=== PATIENT | female | born 1955 | race Caucasian/White ===

== ENCOUNTER 2016-04-16 21:04 | Inpatient (IN) | payer BC ==
[2016-04-16] MEDS ORDERED: IPRATROPIUM/ALBUTEROL (0.5MG/3MG) NEB INH ONE (21:25)
[2016-04-16] MEDS ORDERED: METHYLPREDNISOLONE PF 125MG/VIAL IVP ONE (21:32)
--- NOTE | 2016-04-16 21:32 | Emergency Department Record ---
History of Present Illness - General Chief Complaint: Cough Stated Complaint: LARRY Time Seen by Provider: 04/16/16 21:24 Source: Patient - History of Present Illness Initial Comments: The patient is a smoker with a history of COPD, E. coli pneumonia with intubation 1 year ago. She finished amoxicillin and prednisone about 2 weeks ago for a URI, and improved partially. Yesterday she began having increasing LARRY, cough, and respiratory distress. MD Complaint: Cough, Other (SOB) - Related Data Home Medications Medication Instructions Recorded Confirmed Last Taken Duloxetine HCl [Cymbalta] 30 mg PO DAILY 03/19/14 05/09/15 03/19/14 Pseudoephedrine HCl [Sudafed 120 mg PO DAILY 03/19/14 05/09/15 03/19/14 12-Hour] Previous Rx's Medication Instructions Recorded Albuterol Sulfate 0.083% [Neb] 3 ml NEB .EVERY 4-6 HOURS PRN #20 03/19/14 ml Amoxicillin [Amoxil] 500 mg PO TID #30 tab 03/19/14 Prednisone [Prednisone 20Mg] 20 mg PO Q12HR #7 tab 03/19/14 Allergies Allergy/AdvReac Type Severity Reaction Status Date / Time aspirin Allergy HIVES Verified 03/19/14 22:09 cephalexin monohydrate Allergy PT UNSURE Verified 05/10/15 09:41 [From Keflex] OF REACTION codeine Allergy VOMITING Verified 03/19/14 22:09 ibuprofen Allergy HIVES Verified 03/19/14 22:09 Sulfa (Sulfonamide Allergy PT UNSURE Verified 05/10/15 09:41 Antibiotics) OF REACTION levofloxacin AdvReac HIVES Verified 05/09/15 12:22 Can Take Amoxicillin and AdvReac Antibiotics Uncoded 04/16/16 21:21 Cleocin she can take Review of Systems Reviewed: No additional complaints except as noted below Constitutional: Reports: As per HPI. Denies: Chills, Fever, Malaise, Night sweats, Weakness, Weight change Eyes: Reports: As per HPI. Denies: Eye discharge, Eye pain, Photophobia, Vision change ENT: Reports: As per HPI. Denies: Congestion, Dental pain, Ear pain, Epistaxis , Hearing loss, Throat pain Respiratory: Reports: As per HPI. Denies: Cough, Dyspnea, Hemoptysis, Stridor, Wheezes Cardiovascular: Reports: As per HPI. Denies: Arrhythmia, Chest pain, Dyspnea on exertion, Edema, Murmurs, Orthopnea, Palpitations, Paroxysmal nocturnal dyspnea, Rheumatic Fever, Syncope Endocrine: Reports: As per HPI. Denies: Fatigue, Heat or cold intolerance, Polydipsia, Polyuria Gastrointestinal: Reports: As per HPI. Denies: Abdominal pain, Constipation, Diarrhea, Hematemesis, Hematochezia, Melena, Nausea, Vomiting Genitourinary: Reports: As per HPI. Denies: Abnormal menses, Discharge, Dyspareunia, Dysuria, Frequency, Hematuria, Incontinence, Retention, Urgency Musculoskeletal: Reports: As per HPI. Denies: Arthralgia, Back pain, Gout, Joint swelling, Myalgia, Neck pain Skin: Reports: As per HPI. Denies: Bruising, Change in color, Change in hair/ nails, Lesions, Pruritus, Rash Neurological: Reports: As per HPI. Denies: Abnormal gait, Confusion, Headache, Numbness, Paresthesias, Seizure, Tingling, Tremors, Vertigo, Weakness Psychiatric: Reports: As per HPI. Denies: Anxiety, Auditory hallucinations, Depression, Homicidal thoughts, Suicidal thoughts, Visual hallucinations Hematological/Lymphatic: Reports: As per HPI. Denies: Anemia, Blood Clots, Easy bleeding, Easy bruising, Swollen glands Past Medical History - SOCIAL HISTORY Smoking Status: Current every day smoker - RESPIRATORY Hx Respiratory Disorders: Yes Hx Bronchitis: Yes - CARDIOVASCULAR Hx Cardio Disorders: No - NEURO Hx Neuro Disorders: No - GI Hx GI Disorders: No - Hx Genitourinary Disorders: No - ENDOCRINE Hx Endocrine Disorders: No - MUSCULOSKELETAL Hx Musculoskeletal Disorders: Yes Comment:: osteomyelitisR shoulder - PSYCH Hx Psych Problems: Yes Hx Depression: Yes - HEMATOLOGY/ONCOLOGY Hx Hematology/Oncology Disorders: No Family Medical History Family Hx Comment (NOT TO BE USED IN PLACE OF ITEMS BELOW): Parkinson's-father Hx Cancer: Father Hx Diabetes: Father Hx Heart Disease: Father Physical Exam - General General Appearance: Alert, Oriented x3, Cooperative, Moderate distress ( coughing spasms, weak, shakey) - Head Head exam: Normal inspection - Eye Eye exam: Normal appearance, PERRL Pupils: Normal accommodation - ENT ENT exam: Normal exam, Mucous membranes moist, Normal external ear exam, Normal orophraynx, TM's normal bilaterally Ear exam: Normal external inspection. negative: External canal tenderness Nasal Exam: Normal inspection. negative: Discharge, Sinus tenderness Mouth exam: Normal external inspection, Tongue normal Teeth exam: Normal inspection. negative: Dental caries Throat exam: Normal inspection. negative: Tonsillar erythema, Tonsillar exudate - Neck Neck exam: Normal inspection, Full ROM. negative: Tenderness - Respiratory Respiratory exam: Accessory muscle use, Decreased breath sounds, Prolonged expiratory, Respiratory distress - Cardiovascular Cardiovascular Exam: Regular rate, Normal rhythm, Normal heart sounds, Tachycardia - GI/Abdominal GI/Abdominal exam: Soft, Normal bowel sounds. negative: Tenderness - Rectal Rectal exam: Deferred - exam: Deferred - Extremities Extremities exam: Normal inspection, Full ROM, Normal capillary refill. negative: Calf tenderness, Pedal edema, Tenderness - Back Back exam: Reports: Normal inspection, Full ROM. Denies: Muscle spasm, Rash noted, Tenderness - Neurological Neurological exam: Alert, Normal gait, Oriented X3, Reflexes normal - Psychiatric Psychiatric exam: Normal affect, Normal mood - Skin Skin exam: Dry, Intact, Normal color, Warm Course Vital Signs 04/16/16 21:21 Temperature 98.4 F Pulse Rate [ 105 H Pulse Ox Probe] Respiratory 20 Rate Blood Pressure 100/58 [Left Arm] Pulse Ox 90 L - Reevaluation(s) Reevaluation #1: Patient has improved with oxygen, nebulizers, and steroid IV and is wishing to be discharged home. Extensive teaching about the need for her to be admitted for further care was given. She would need to sign out AMA if she is discharged. I strongly discouraged her going home and gave her and her times to discuss their decision. 04/17/16 00:40 Reevaluation #2: Patient is walking outside for a cigarette despite being told she is not allowed to. She agrees to admission for COPD exacerbation and knows that she is not allowed to smoke while a patient in this hospital. 04/17/16 00:53 Medical Decision Making - Management Options MDM Management: Additional Work-up Planned (e.g. ADM/Transfer/OP Study) (Admit for COPD exacerbation) - Data Complexity MDM Data: Labs Ordered and/or Reviewed, X-Ray Ordered and/or Reviewed (CXR: COPD changes, no acute abnormality. Per radiologist. ), EKG Ordered and/or Reviewed - Lab Data Result diagrams: 04/16/16 21:40 04/16/16 21:40 - EKG Data -: EKG Interpreted by Me EKG: No Acute Changes, Unchanged From Previous (prior had tachycardia, no acute abnormality seen) Disposition Disposition: Admit Clinical Impression: COPD with acute exacerbation, Hypoxia Disposition: Still a Patient at [facility] Decision to Admit: Admit from ER Decision to Admit Date: 04/17/16 Decision to Admit Time: 00:58 Accepting Physician: Dr. Cates/ Maria Fernanda Lebron director of content marketing Condition: (2) Stable Forms: Patient Portal Access
[2016-04-16 21:49] LABS: BASO % 0.2 % (0-6); GRAN % 74.5 % (47-80); HEMATOCRIT 39.9 % (35.0-47.0); HEMOGLOBIN 14.2 gm/dl (11.6-16.0); LYMPH % 13.5 % (16-45); MEAN CELL VOLUME 82.1 fl (81-97); MEAN CORPUSCULAR HEMOGLOBIN 29.2 pg (27-33); MEAN CORPUSCULAR HGB CONC 35.6 g/dl (32-36); MEAN PLATELET VOLUME 9.3 fl (7.4-10.4); MONO % 10.8 % (0-9); PLATELET COUNT 260 K/uL (130-400); RED BLOOD COUNT 4.86 M/uL (3.80-5.40); RED CELL DISTRIBUTION WIDTH 13.8 % (11.5-14.5); WHITE BLOOD COUNT W/O DIFF 8.6 K/uL (4.2-12.2)
[2016-04-16 22:01] LABS: ALB/GLOB RATIO 1.6 (1.1-1.8); ALBUMIN 4.1 gm/dL (3.5-5.0); ALKALINE PHOSPHATASE 93 U/L (38-126); ALT/SGPT 32 U/L (9-52); ANION GAP 8.5 (7-16); AST/SGOT 16 U/L (14-36); BILIRUBIN,TOTAL 0.32 mg/dL (0.2-1.3); BLOOD UREA NITROGEN 11 mg/dL (7-17); CARBON DIOXIDE 23.5 mmol/L (22-30); CREATININE 0.6 mg/dL (0.52-1.04); EST GLOMERULAR FILTRATION RATE > 60 ml/min; GLUCOSE,RANDOM 121 mg/dL (70-110); TOTAL PROTEIN 6.6 gm/dL (6.3-8.2)
[2016-04-16 22:13] LABS: TROPONIN I < 0.012 ng/mL (0.00-0.034)
[2016-04-16] MEDS ORDERED: ALBUTEROL SULFATE (0.083%) 2.5 MG/3 ML NEB INH ONE (23:30)
[2016-04-17] MEDS ORDERED: SODIUM CHLORIDE 0.9% IVPB ONE (00:43)
[2016-04-17] MEDS ORDERED: AMPICILLIN SODIUM IVPB ONE (00:43)
[2016-04-17] MEDS ORDERED: IPRATROPIUM/ALBUTEROL (0.5MG/3MG) NEB INH ONE (00:50)
[2016-04-17] MEDS ORDERED: NICOTINE 21 MG/24 HOUR PATCH TD SCH (02:30)
[2016-04-17] MEDS: AMPICILLIN SODIUM IVPB SCH ×2 (02:43→08:02)
[2016-04-17] MEDS: SODIUM CHLORIDE 0.9% IVPB SCH ×2 (02:43→08:02)
[2016-04-17 03:14] LABS: URINE APPEARANCE CLEAR; URINE BILIRUBIN NEGATIVE (NEGATIVE); URINE BLOOD SMALL (NEGATIVE); URINE COLOR YELLOW; URINE GLUCOSE (UA) NEGATIVE (NEGATIVE); URINE KETONE NEGATIVE (NEGATIVE); URINE LEUKOCYTE ESTERASE NEGATIVE (NEGATIVE); URINE NITRITE NEGATIVE (NEGATIVE); URINE PROTEIN NEGATIVE (NEGATIVE); URINE UROBILINOGEN 0.2 E.U./dL (0.20 - 1.00)
[2016-04-17 03:44] LABS: URINE EPITHELIAL CELLS 0 - 2 (FEW); URINE WBC 0 - 2 (0-2/hpf)
[2016-04-17 03:45] LABS: URINE BACTERIA NONE SEEN
[2016-04-17] MEDS ORDERED: IPRATROPIUM/ALBUTEROL (0.5MG/3MG) NEB INH SCH (05:00)
[2016-04-17] MEDS ORDERED: ALBUTEROL SULFATE (0.083%) 2.5 MG/3 ML NEB INH SCH (06:00)
[2016-04-17] MEDS: BENZONATATE 100 MG CAPSULE PO PRN ×3 (06:40→22:13)
[2016-04-17] MEDS ORDERED: ALBUTEROL SULFATE (0.083%) 2.5 MG/3 ML NEB INH PRN (07:52)
[2016-04-17] MEDS: IPRATROPIUM/ALBUTEROL (0.5MG/3MG) NEB INH SCH ×4 (08:22→21:02)
[2016-04-17] MEDS: NICOTINE 21 MG/24 HOUR PATCH TD SCH (09:33)
[2016-04-17] MEDS ORDERED: DULOXETINE HCL 30 MG CAPSULE.DR PO SCH (10:00)
[2016-04-17] MEDS ORDERED: METHYLPREDNISOLONE PF 125MG/VIAL IVP SCH (10:00)
[2016-04-17] MEDS ORDERED: PNEUM 23-VAL ADULT IM ONE (10:00)
[2016-04-17] MEDS ORDERED: DOXYCYCLINE HYCLATE 100 MG CAPSULE PO SCH (10:15)
[2016-04-17] MEDS ORDERED: CEFTRIAXONE 1 GRAM VIAL IM SCH (10:15)
[2016-04-17] MEDS: FLUTICASONE PROPIONATE 50MCG NASAL 16 GM BTL SCH (11:00)
[2016-04-17] MEDS: CEFTRIAXONE SODIUM 1 GM in 0.9 % SODIUM CHLORIDE 100ML 100 ML IVPB SCH ×2 (11:00→22:14)
--- NOTE | 2016-04-17 11:07 | History & Physical ---
History of Present Illness - Date of Service Date of Service for History & Physical: 04/17/16 - History of Present Illness Admitting Diagnosis: COPD exacerbation; hypoxemia; failure of out patient treatment History of Present Illness: 61 yo female admitted for acute exacerbation of COPD. PMHx of smoking (1 ppd x 42 years, seasonal allergies, COPD, E. coli PNA 1 year ago in ICU). Patient admits to 3 days of worsening SOB and cough. Aggravated by travel to [place]. Alleviated by breathing treatment, steroid and oxygen supplementation in the ER. Associated symptoms include GOMEZ and nasal congestion. Denies sputum production, fever, chills, n/v, diarrhea, abdominal pain, chest pain, hemoptysis , skin changes or lower extremity swelling. upon presentation to the ER, temp 98.4, HR 105, BP 100/58, RR 20, & oxygen 90 % RA. WBC 8.6, H/H normal, plt 260, sodium 137, potassium 3.6, chloride 105, bun 11, creatinine 0.6, glucose 121, AST 16, ALT 31, CE's negative x 1, D-dimer normal. UA: small blood, neg leuks. EKG: NSR, no acute abnormality, unchanged aside from tachycardia. CXR: stable COPD, no opacity. She was started on IVF's , 125 mg of Solumedrol, Duo neb treatments and supplemental oxygen. Due to patient's allergies (keflex, azithromycin), Dr. Pulliam placed patient on IV ampicillin. She was placed on Telemetry and admitted for further medical management. This morning, patient is sitting up in bed comfortably. She's experiencing a GOMEZ , which she believes is related to her coughing & sinus pressure. She states she feels less SOB. Oxygen saturation is 94% on 2 L's NC. Patient's requesting a decongestant as she takes this daily for sinus issues. Normal appetite, bowel and bladder function. Denies CP, fever, chills, diaphoresis, hemoptysis, abdominal or back pain. She reports h/o sinusitis and bronchitis one month ago , placed on amoxicillin and prednisone. She had been feeling better until traveling to [place] this past Sunday. In addition, pt has a h/o Ecoli PNA one year ago and in the ICU at that time. No sick contacts. No other changes to her medications. PCP: Dr. Edd M.D. Travel Screening - Travel/Exposure Within Last 30 Days Have you traveled within the last 30 days?: Yes Location Detail:: [place] - Travel/Exposure Within Last Year Have you traveled outside the [place] in the last year?: No - Additonal Travel Details Have you been exposed to anyone with a communicable illness?: No - Travel Symptoms Symptom Screening: None Review of Systems Constitutional: Reports: As per HPI. Denies: Chills, Fever, Malaise, Night sweats, Weakness, Weight change Eyes: Reports: As per HPI. Denies: Eye discharge, Eye pain, Photophobia, Vision change ENT: Reports: As per HPI. Denies: Congestion, Dental pain, Ear pain, Epistaxis , Hearing loss, Throat pain Respiratory: Reports: As per HPI. Denies: Cough, Dyspnea, Hemoptysis, Stridor, Wheezes Cardiovascular: Reports: As per HPI. Denies: Arrhythmia, Chest pain, Dyspnea on exertion, Edema, Murmurs, Orthopnea, Palpitations, Paroxysmal nocturnal dyspnea, Rheumatic Fever, Syncope Endocrine: Reports: As per HPI. Denies: Fatigue, Heat or cold intolerance, Polydipsia, Polyuria Gastrointestinal: Reports: As per HPI. Denies: Abdominal pain, Constipation, Diarrhea, Hematemesis, Hematochezia, Melena, Nausea, Vomiting Genitourinary: Reports: As per HPI. Denies: Abnormal menses, Discharge, Dyspareunia, Dysuria, Frequency, Hematuria, Incontinence, Retention, Urgency Musculoskeletal: Reports: As per HPI. Denies: Arthralgia, Back pain, Gout, Joint swelling, Myalgia, Neck pain Skin: Reports: As per HPI. Denies: Bruising, Change in color, Change in hair/ nails, Lesions, Pruritus, Rash Neurological: Reports: As per HPI. Denies: Abnormal gait, Confusion, Headache, Numbness, Paresthesias, Seizure, Tingling, Tremors, Vertigo, Weakness Psychiatric: Reports: As per HPI. Denies: Anxiety, Auditory hallucinations, Depression, Homicidal thoughts, Suicidal thoughts, Visual hallucinations Hematological/Lymphatic: Reports: As per HPI. Denies: Anemia, Blood Clots, Easy bleeding, Easy bruising, Swollen glands Past Medical History - SOCIAL HISTORY Smoking Status: Current every day smoker Alcohol Use: Rare Drug Use: None - RESPIRATORY Hx Respiratory Disorders: Yes Hx Bronchitis: Yes - CARDIOVASCULAR Hx Cardio Disorders: No - NEURO Hx Neuro Disorders: No Hx Headaches: Yes (Sinus) - GI Hx GI Disorders: No - Hx Genitourinary Disorders: No - ENDOCRINE Hx Endocrine Disorders: No - MUSCULOSKELETAL Hx Musculoskeletal Disorders: Yes Hx Arthritis: Yes Comment:: osteomyelitis R shoulder from recurrent ear infections - PSYCH Hx Psych Problems: Yes Hx Depression: Yes - HEMATOLOGY/ONCOLOGY Hx Hematology/Oncology Disorders: No Family Medical History Any Significant Family History?: Yes Family Hx Comment (NOT TO BE USED IN PLACE OF ITEMS BELOW): Parkinson's-father Hx Alcohol Use: Mother Hx Cancer: Father Hx Dementia: Father Hx Diabetes: Father Hx Heart Disease: Father Hx Liver Disease: Mother H&P Meds/Allergies - Allergies Allergies: Allergies Allergy/AdvReac Type Severity Reaction Status Date / Time aspirin Allergy HIVES Verified 03/19/14 22:09 azithromycin Allergy ANAPHYLAXIS Verified 04/17/16 10:12 cephalexin monohydrate Allergy PT UNSURE Verified 05/10/15 09:41 [From Keflex] OF REACTION codeine Allergy VOMITING Verified 03/19/14 22:09 ibuprofen Allergy HIVES Verified 03/19/14 22:09 Sulfa (Sulfonamide Allergy PT UNSURE Verified 05/10/15 09:41 Antibiotics) OF REACTION levofloxacin AdvReac HIVES Verified 05/09/15 12:22 Can Take Amoxicillin and AdvReac Antibiotics Uncoded 04/16/16 21:21 Cleocin she can take - Home Medications Home Medications Medication Instructions Recorded Confirmed Last Taken Pseudoephedrine HCl [Sudafed 120 mg PO DAILY 03/19/14 04/17/16 04/16/16 12-Hour] Previous Rx's Medication Instructions Recorded Albuterol Sulfate 0.083% [Neb] 3 ml NEB .EVERY 4-6 HOURS PRN #20 03/19/14 ml - Active Medications Active Medications: Current Medications Albuterol Sulfate () 2.5 mg INH RESP.Q2H PRN PRN Reason: DIFFICULTY IN BREATHING Last Admin: 04/17/16 10:22 Dose: 2.5 mg Albuterol/Ipratropium (Duoneb) 3 ml INH RESP.Q4H THEO Last Admin: 04/17/16 08:22 Dose: 3 ml Benzonatate (Tessalon) 100 mg PO TID PRN PRN Reason: COUGH Last Admin: 04/17/16 06:40 Dose: 100 mg Doxycycline Hyclate (Vibramycin) 100 mg PO BID [facility] Stop: 04/24/16 10:16 Fluticasone Propionate (Flonase) 16 gm NA DAILY [facility] Sodium Chloride () 1,000 mls @ 125 mls/hr IV .Q8H PRN PRN Reason: LARGE VOLUME IV Ceftriaxone Sodium 1 gm/ (Sodium Chloride) 100 mls @ 200 mls/hr IVPB Q12H [facility] Stop: 04/22/16 10:31 Methylprednisolone Sodium Succinate (Solu-Medrol) 60 mg IVP DAILY [facility] Nicotine (Nicotine 21mg) 1 patch TD Q24H [facility] Last Admin: 04/17/16 09:33 Dose: 1 patch Physical Exam - Vital Signs Vital Signs: Vital Signs - Last 24 Hrs Temp Pulse Pulse Resp BP Pulse Ox 04/17/16 09:00 24 04/17/16 08:30 100 H 18 94 L 04/17/16 08:25 98.0 F 105 H 20 104/64 94 L 04/17/16 06:23 100 H 22 93 L 04/17/16 03:21 20 04/17/16 02:00 98.5 F 103 H 24 114/60 94 L 04/17/16 01:40 98.3 F 100 H 16 99/61 95 - General General Appearance: Alert, Oriented x3, Cooperative, Mild distress - Head Head exam: Normal inspection - Eye Eye exam: Normal appearance, PERRL Pupils: Normal accommodation - ENT ENT exam: Normal exam, Mucous membranes moist, Normal external ear exam, Normal orophraynx, TM's normal bilaterally Ear exam: Normal external inspection. negative: External canal tenderness Nasal Exam: Normal inspection. negative: Discharge, Sinus tenderness Mouth exam: Normal external inspection, Tongue normal Teeth exam: Normal inspection. negative: Dental caries Throat exam: Normal inspection. negative: Tonsillar erythema, Tonsillar exudate - Neck Neck exam: Normal inspection, Full ROM. negative: Tenderness - Respiratory Respiratory exam: Accessory muscle use, Decreased breath sounds, Prolonged expiratory - Cardiovascular Cardiovascular Exam: Normal rhythm, Normal heart sounds, Tachycardia - GI/Abdominal GI/Abdominal exam: Soft, Normal bowel sounds. negative: Tenderness - Rectal Rectal exam: Deferred - exam: Deferred - Extremities Extremities exam: Normal inspection, Full ROM, Normal capillary refill. negative: Calf tenderness, Pedal edema, Tenderness - Back Back exam: Reports: Normal inspection, Full ROM. Denies: Muscle spasm, Rash noted, Tenderness - Neurological Neurological exam: Alert, Normal gait, Oriented X3, Reflexes normal - Psychiatric Psychiatric exam: Normal affect, Normal mood - Skin Skin exam: Dry, Intact, Normal color, Warm Results - Labs Result Diagrams: 04/16/16 21:40 04/16/16 21:40 Labs Last 24 Hours: Laboratory Results - last 24 hr 04/17/16 03:44 Urine Color Yellow Urine Appearance Clear Urine pH 6.0 Ur Specific [place] >= 1.030 Urine Protein Negative Urine Glucose (UA) Negative Urine Ketones Negative Urine Blood Small H Urine Nitrite Negative Urine Bilirubin Negative Urine Urobilinogen 0.2 Ur Leukocyte Esterase Negative Urine RBC 3 - 6 Urine WBC 0 - 2 Ur Epithelial Cells 0 - 2 Urine Bacteria None seen VTE H&P Assessment - Risk for VTE Risk for VTE: Yes Risk Level: Moderate Risk Assessment Date: 04/17/16 Risk Assessment Time: 11:00 VTE Orders Placed or Will Be Placed: Yes Plan - Inpatient Certification Inpatient Certification: Admit to inpatient care: Based on my medical assessment, after consideration of patient's risk factors (age, co-morbidities and patient presenting symptoms and acuity), I expect that this patient will remain in the hospital greater than or equal to two midnights and that the services needed warrant inpatient care because: Patient Risk Factors: [] Estimated length of stay: [] The patient may reasonably be expected to be discharged or transferred to a hospital within 96 hours after admission to [facility]. Services needed: [] Post hospital care (if known): [] I certify that my determination is in accordance with my understanding of Medicare requirements for reasonable and necessary inpatient services. - Detailed Diagnosis and Plan (1) COPD with acute exacerbation Current Visit: Yes Status: Acute Base Code: J44.1 - CHRONIC OBSTRUCTIVE PULMONARY DISEASE W (ACUTE) EXACERBATION Comment: 04/17/16: - CXR: stable COPD, no opacities. WBC normal. Afebrile. - continue duo neb treatments - 60 mg of IV solu medrol daily. received 125 mg of solu medrol within the past 24 hours. - will change antibiotic to 1 mg of IV Rocephin q 12 hours and Doxycycline 100 mg q 12 hours. Noting patient's medication allergies, we discussed change in antibiotics at length. She reports hives from multiple medications, including Keflex. Azithromycin caused anaphylactic reaction. Patient willing to trial Rocephin and Doxy. Will update medication allergies if patient experiences any side effects. Continue steroid therapy. - Oxygen supplemenation as needed. - telemetry - labs daily - monitor vital signs q 4 hours (2) DVT prophylaxis Current Visit: Yes Status: Acute Base Code: [id number] - Comment: 04/17/16: lovenox 40 mg SQ daily (3) Full code status Current Visit: Yes Status: Acute Base Code: Z78.9 - OTHER SPECIFIED HEALTH STATUS Comment: 04/17/16: pt is full code
[2016-04-17] MEDS: 0.9 % SODIUM CHLORIDE 1000ML 1,000 ML IV PRN (12:18)
[2016-04-17] MEDS ORDERED: DIPHENHYDRAMINE HCL IV 50 MG/ML VIAL IVP ONE (15:10)
[2016-04-17] MEDS: ACETAMINOPHEN 500 MG TABLET PO PRN (20:43)
[2016-04-18] MEDS: IPRATROPIUM/ALBUTEROL (0.5MG/3MG) NEB INH SCH ×4 (00:31→10:14)
[2016-04-18] MEDS: 0.9 % SODIUM CHLORIDE 1000ML 1,000 ML IV PRN (03:02)
[2016-04-18 06:35] LABS: BASO % 0.1 % (0-6); GRAN % 75.9 % (47-80); HEMATOCRIT 38.5 % (35.0-47.0); HEMOGLOBIN 13.1 gm/dl (11.6-16.0); LYMPH % 12.7 % (16-45); MEAN CELL VOLUME 84.4 fl (81-97); MEAN CORPUSCULAR HEMOGLOBIN 28.7 pg (27-33); MEAN PLATELET VOLUME 9.5 fl (7.4-10.4); MONO % 11.3 % (0-9); PLATELET COUNT 270 K/uL (130-400); RED BLOOD COUNT 4.56 M/uL (3.80-5.40); WHITE BLOOD COUNT W/O DIFF 12.3 K/uL (4.2-12.2)
[2016-04-18] MEDS: BENZONATATE 100 MG CAPSULE PO PRN (06:46)
[2016-04-18] MEDS: ACETAMINOPHEN 500 MG TABLET PO PRN (06:46)
[2016-04-18 06:54] LABS: ALB/GLOB RATIO 1.7 (1.1-1.8); ALKALINE PHOSPHATASE 76 U/L (38-126); ALT/SGPT 34 U/L (9-52); ANION GAP 10.7 (7-16); AST/SGOT 18 U/L (14-36); BILIRUBIN,TOTAL 0.18 mg/dL (0.2-1.3); BLOOD UREA NITROGEN 9 mg/dL (7-17); CARBON DIOXIDE 22.3 mmol/L (22-30); CREATININE 0.5 mg/dL (0.52-1.04); EST GLOMERULAR FILTRATION RATE > 60 ml/min; GLUCOSE,RANDOM 103 mg/dL (70-110); TOTAL PROTEIN 6.4 gm/dL (6.3-8.2)
--- NOTE | 2016-04-18 08:35 | RADIOLOGY REPORT ---
EXAM: CHEST, TWO VIEWS HISTORY: COUGH, DIFFICULTY BREATHING, AND BRONCHITIS. COPD. TECHNIQUE: PA and lateral upright views of the chest were obtained. Comparison: 03/19/14. FINDINGS: The heart, mediastinum, and pulmonary vasculature are normal. The lungs are hyperinflated consistent with COPD. There are no acute infiltrates or effusions. There is no pneumothorax. The bones appear intact. IMPRESSION: 1. COPD. 2. NO ACUTE CHEST PATHOLOGY. JOB NUMBER: [id number] MTDD
--- NOTE | 2016-04-18 09:44 | Physician Progress Note ---
Subjective - Date Date of Physician Progress Note: 04/18/16 Objective - Vital Signs Vital Signs: Vital Signs - Last 24 Hrs Temp Pulse Pulse Resp BP Pulse Ox 04/18/16 08:10 24 04/18/16 06:00 97.6 F 93 H 22 102/58 95 04/18/16 05:57 90 22 98 04/18/16 01:37 96 H 20 96 04/17/16 21:03 105 H 24 95 04/17/16 20:34 98.0 F 106 H 24 113/69 95 04/17/16 20:30 22 04/17/16 16:32 100 H 18 04/17/16 15:34 98.3 F 111 H 22 114/63 94 L 04/17/16 14:00 97.8 F 110 H 22 122/74 95 04/17/16 11:34 97.8 F 110 H 22 122/74 95 - General General Appearance: Alert, Oriented x3, Cooperative, Mild distress - Head Head exam: Normal inspection - Eye Eye exam: Normal appearance, PERRL Pupils: Normal accommodation - ENT ENT exam: Normal exam, Mucous membranes moist, Normal external ear exam, Normal orophraynx, TM's normal bilaterally Ear exam: Normal external inspection. negative: External canal tenderness Nasal Exam: Normal inspection. negative: Discharge, Sinus tenderness Mouth exam: Normal external inspection, Tongue normal Teeth exam: Normal inspection. negative: Dental caries Throat exam: Normal inspection. negative: Tonsillar erythema, Tonsillar exudate - Neck Neck exam: Normal inspection, Full ROM. negative: Tenderness - Respiratory Respiratory exam: Accessory muscle use, Decreased breath sounds, Prolonged expiratory - Cardiovascular Cardiovascular Exam: Normal rhythm, Normal heart sounds, Tachycardia - GI/Abdominal GI/Abdominal exam: Soft, Normal bowel sounds. negative: Tenderness - Rectal Rectal exam: Deferred - exam: Deferred - Extremities Extremities exam: Normal inspection, Full ROM, Normal capillary refill. negative: Calf tenderness, Pedal edema, Tenderness - Back Back exam: Reports: Normal inspection, Full ROM. Denies: Muscle spasm, Rash noted, Tenderness - Neurological Neurological exam: Alert, Normal gait, Oriented X3, Reflexes normal - Psychiatric Psychiatric exam: Normal affect, Normal mood - Skin Skin exam: Dry, Intact, Normal color, Warm Results - Labs Result Diagrams: 04/18/16 06:25 04/18/16 06:25 Labs Last 24 Hours: Laboratory Results - last 24 hr 04/18/16 04/18/16 06:25 06:25 WBC 12.3 H RBC 4.56 Hgb 13.1 Hct 38.5 MCV 84.4 MCH 28.7 MCHC 34.0 RDW 14.0 Plt Count 270 MPV 9.5 Gran % 75.9 Lymphocytes % 12.7 L Monocytes % 11.3 H Eosinophils % 0.0 Basophils % 0.1 Sodium 142 Potassium 3.9 Chloride 109 H Carbon Dioxide 22.3 Anion Gap 10.7 BUN 9 Creatinine 0.5 L Estimated GFR > 60 Random Glucose 103 Calcium 8.5 Total Bilirubin 0.18 L AST 18 ALT 34 Alkaline Phosphatase 76 Total Protein 6.4 Albumin 4.0 Globulin 2.4 Albumin/Globulin Ratio 1.7 DVT/PE Assessment - Risk for VTE Risk for VTE: No Risk Level: Moderate Risk Assessment Date: 04/17/16 Risk Assessment Time: 11:00 VTE Orders Placed or Will Be Placed: Yes - Active Medicaitons Current Medications: Current Medications Acetaminophen (Tylenol 500mg Tab) 1,000 mg PO Q6H PRN PRN Reason: Pain Last Admin: 04/18/16 06:46 Dose: 1,000 mg Albuterol Sulfate () 2.5 mg INH RESP.Q2H PRN PRN Reason: DIFFICULTY IN BREATHING Last Admin: 04/17/16 10:22 Dose: 2.5 mg Albuterol/Ipratropium (Duoneb) 3 ml INH RESP.Q4H THEO Last Admin: 04/18/16 05:56 Dose: 3 ml Benzonatate (Tessalon) 100 mg PO TID PRN PRN Reason: COUGH Last Admin: 04/18/16 06:46 Dose: 100 mg Enoxaparin Sodium (Lovenox) 40 mg SQ DAILY [facility] Fluticasone Propionate (Flonase) 16 gm NA DAILY [facility] Last Admin: 04/17/16 11:00 Dose: Not Given Sodium Chloride () 1,000 mls @ 125 mls/hr IV .Q8H PRN PRN Reason: LARGE VOLUME IV Last Admin: 04/18/16 03:02 Dose: 125 mls/hr Ceftriaxone Sodium 1 gm/ (Sodium Chloride) 100 mls @ 200 mls/hr IVPB Q12H [facility] Stop: 04/22/16 10:31 Last Admin: 04/17/16 22:14 Dose: 100 mls/hr Methylprednisolone Sodium Succinate (Solu-Medrol) 60 mg IVP DAILY [facility] Nicotine (Nicotine 21mg) 1 patch TD Q24H [facility] Last Admin: 04/17/16 09:33 Dose: 1 patch AMI Plan - Labs Result Diagrams: 04/18/16 06:25 04/18/16 06:25
[2016-04-18] MEDS ORDERED: METHYLPREDNISOLONE PF 125MG/VIAL IVP SCH (10:00)
[2016-04-18] MEDS ORDERED: ENOXAPARIN 40 MG/0.4 ML SYR SQ SCH (10:00)
[2016-04-18] MEDS: FLUTICASONE PROPIONATE 50MCG NASAL 16 GM BTL SCH (10:04)
[2016-04-18] MEDS: CEFTRIAXONE SODIUM 1 GM in 0.9 % SODIUM CHLORIDE 100ML 100 ML IVPB SCH (10:08)
[2016-04-18] MEDS: NICOTINE 21 MG/24 HOUR PATCH TD SCH (10:08)
--- NOTE | 2016-04-18 12:48 | Discharge Summary ---
Providers Discharge Summary Date: 04/18/16 Date of admission: 04/17/16 01:37 Expected Date of Discharge: 04/18/16 Attending physician: TERRELL HOOD Primary care physician: SAM NOLAN M.D. Physical Exam - Vital Signs Vital Signs: Vital Signs - Last 24 Hrs Temp Pulse Pulse Resp BP Pulse Ox 04/18/16 10:25 100 H 18 95 04/18/16 08:10 24 04/18/16 06:00 97.6 F 93 H 22 102/58 95 04/18/16 05:57 90 22 98 04/18/16 01:37 96 H 20 96 04/17/16 21:03 105 H 24 95 04/17/16 20:34 98.0 F 106 H 24 113/69 95 04/17/16 20:30 22 04/17/16 16:32 100 H 18 04/17/16 15:34 98.3 F 111 H 22 114/63 94 L 04/17/16 14:00 97.8 F 110 H 22 122/74 95 - General General Appearance: Alert, Oriented x3, Cooperative, Mild distress - Head Head exam: Normal inspection - Eye Eye exam: Normal appearance, PERRL Pupils: Normal accommodation - ENT ENT exam: Normal exam, Mucous membranes moist, Normal external ear exam, Normal orophraynx, TM's normal bilaterally Ear exam: Normal external inspection. negative: External canal tenderness Nasal Exam: Normal inspection. negative: Discharge, Sinus tenderness Mouth exam: Normal external inspection, Tongue normal Teeth exam: Normal inspection. negative: Dental caries Throat exam: Normal inspection. negative: Tonsillar erythema, Tonsillar exudate - Neck Neck exam: Normal inspection, Full ROM. negative: Tenderness - Respiratory Respiratory exam: Prolonged expiratory - Cardiovascular Cardiovascular Exam: Normal rhythm, Normal heart sounds, Tachycardia - GI/Abdominal GI/Abdominal exam: Soft, Normal bowel sounds. negative: Tenderness - Rectal Rectal exam: Deferred - exam: Deferred - Extremities Extremities exam: Normal inspection, Full ROM, Normal capillary refill. negative: Calf tenderness, Pedal edema, Tenderness - Back Back exam: Reports: Normal inspection, Full ROM. Denies: Muscle spasm, Rash noted, Tenderness - Neurological Neurological exam: Alert, Normal gait, Oriented X3, Reflexes normal - Psychiatric Psychiatric exam: Normal affect, Normal mood - Skin Skin exam: Dry, Intact, Normal color, Warm Hospitalization - Hospitalization Admission Diagnosis: COPD exacerbation; hypoxemia; failure of out patient treatment - Problem List/Discharge Diagnosis (1) COPD with acute exacerbation Current Visit: Yes Status: Acute Base Code: J44.1 - CHRONIC OBSTRUCTIVE PULMONARY DISEASE W (ACUTE) EXACERBATION Comment: 04/18/16: - COPD pathway with breathing treatments, steroids and antibiotic (for prophylactic PNA- however patient has allergies to all antibiotics except amoxicillin which she is willing to take) - CXR: stable COPD, no opacities. WBC normal. Afebrile. - continue duo neb treatments - 60 mg of IV solu medrol daily. received 125 mg of solu medrol in ED - did not qualify for home oxygen during oxygen qualifier walk - continue amoxcillin 500 qd mike 10 days - off work note for rest of week - Hospitalization Course Disposition: Home, Self-Care Abnormal Labs: Abnormal Lab Results 04/17/16 04/18/16 04/18/16 Range/Units 03:44 06:25 06:25 WBC 12.3 H (4.2-12.2) K/uL Lymphocytes % 12.7 L (16-45) % Monocytes % 11.3 H (0-9) % Chloride 109 H (98-107) mmol/L Creatinine 0.5 L (0.52-1.04) mg/dL Total Bilirubin 0.18 L (0.2-1.3) mg/dL Urine Blood Small H (NEGATIVE) Condition at Discharge: (2) Stable Discharge Diagnosis: 1) copd exaccerbation VTE Discharge VTE Reason For No Overlap Therapy: Not Indicated Discharge Medications - Discharge Medications Prescriptions: Ampicillin Trihydrate 500 mg PO DAILY #10 capsule Ipratropium/Albuterol [Duoneb] 3 ml INH QID #10 ampul.neb Fluticasone Propionate [Flonase] 1 puff IN DAILY #1 btl Prednisone [Prednisone 20Mg] 60 mg PO DAILY #18 tab Home Medications: Ambulatory Orders Albuterol Sulfate 0.083% [Neb] 3 ml NEB .EVERY 4-6 HOURS PRN #20 ml 03/19/14 [ Last Taken 04/16/16] Pseudoephedrine HCl [Sudafed 12-Hour] 120 mg PO DAILY 03/19/14 [Last Taken 04/16] Ampicillin Trihydrate 500 mg PO DAILY #10 capsule 04/18/16 [Last Taken Unknown] Fluticasone Propionate [Flonase] 1 puff IN DAILY #1 btl 04/18/16 [Last Taken Unknown] Ipratropium/Albuterol [Duoneb] 3 ml INH QID #10 ampul.neb 04/18/16 [Last Taken Unknown] Nicotine [Nicotine 21Mg] 1 patch TD Q24H patch 04/18/16 [Last Taken Unknown] Prednisone [Prednisone 20Mg] 60 mg PO DAILY #18 tab 04/18/16 [Last Taken Unknown ] Discharge Plan - Discharge Instructions Activity at Discharge: Increase Activity as Tolerated, Resume Usual Activities As Tolerated
== END 2016-04-18 14:00 | disposition home or self-care (01) | DRG 192 ==
LOC: ER 21:04 → MEDSURG 04-17 01:37
PROVIDERS: ADMIT Family Medicine; ATTEND Family Medicine
DX: J44.1 Chronic obstructive pulmonary disease with (acute) exacerbation (principal); F17.200 Nicotine dependence, unspecified, uncomplicated; Z78.9 Other specified health status
CPT/HCPCS: 71020; 80053; 81001; 83880; 84484; 85025; 85379; 87040; 93005; 93010; 94620; 94640; 94760; 94761; 96365; 96375; 99223; 99239; 99285; J1200; J2930; J7613

== ENCOUNTER 2017-06-13 16:00 | Emergency (ER) | payer BC ==
[2017-06-13] MEDS ORDERED: SODIUM CHLORIDE 0.9% 500 ML IV ONE (16:12)
--- NOTE | 2017-06-13 16:16 | Emergency Department Record ---
History of Present Illness - General Chief complaint: Female Urogenital Problem Stated complaint: UTI Time Seen by Provider: 06/13/17 16:09 Source: Patient, Family Mode of Arrival: Ambulatory Limitations: No limitations - History of Present Illness Initial comments: 62 yo female presents from the [facility] with UTI with concern for pyelonephritis. She had urinary symptoms for about one week. She was seen at the [facility] and diagnosed with a UTI. She was placed on Amoxicillin. She has continued to have urinary discomfort and now she has right flank pain. No fevers or chills. No vomiting. No rash. No history of stones. Last UTI was 30 years ago. MD Complaint: Dysuria Onset/Timin -: Days(s) Radiation: R flank Severity scale (1-10): 4 Quality: Aching Consistency: Constant Improves with: None Worsens with: Urination Patient : No Associated Symptoms: Dysuria - Related Data Home Medications Medication Instructions Recorded Confirmed Last Taken Cetirizine HCl [Zyrtec] 10 mg PO DAILY 06/13/17 06/13/17 Unknown Montelukast Sodium [Singulair] 10 mg PO QHS 06/13/17 06/13/17 Unknown Previous Rx's Medication Instructions Recorded Amoxicillin 500Mg Capsule [Amoxil] 500 mg PO BID #20 tab 04/18/16 Ipratropium/Albuterol [Duoneb] 3 ml INH QID #10 ampul.neb 04/18/16 Ciprofloxacin HCl [Cipro] 500 mg PO Q12HR #20 tablet 06/13/17 Allergies Allergy/AdvReac Type Severity Reaction Status Date / Time aspirin Allergy HIVES Unverified 06/13/17 15:16 azithromycin Allergy ANAPHYLAXIS Unverified 06/13/17 15:16 cephalexin monohydrate Allergy PT UNSURE Unverified 06/13/17 15:16 [From Keflex] OF REACTION codeine Allergy VOMITING Unverified 06/13/17 15:16 doxycycline Allergy ANAPHYLAXIS Unverified 06/13/17 15:16 ibuprofen Allergy HIVES Unverified 06/13/17 15:16 Sulfa (Sulfonamide Allergy PT UNSURE Unverified 06/13/17 15:16 Antibiotics) OF REACTION levofloxacin AdvReac HIVES Unverified 06/13/17 15:16 Can Take Amoxicillin and AdvReac Antibiotics Uncoded 04/16/16 21:21 Cle[place] she can take Travel Screening - Travel/Exposure Within Last 30 Days Have you traveled within the last 30 days?: No Review of Systems Constitutional: Denies: Chills, Fever, Weakness Eyes: Denies: Eye discharge ENT: Denies: Congestion, Throat pain Respiratory: Denies: Cough, Dyspnea, Hemoptysis, Stridor, Wheezes Cardiovascular: Denies: Chest pain, Palpitations, Syncope Endocrine: Denies: Fatigue, Polydipsia, Polyuria Gastrointestinal: Reports: As per HPI, Abdominal pain. Denies: Diarrhea, Nausea , Vomiting Genitourinary: Reports: Dysuria, Frequency Musculoskeletal: Reports: Back pain. Denies: Arthralgia, Myalgia Skin: Denies: Bruising, Change in color, Rash Neurological: Denies: Numbness, Weakness Psychiatric: Denies: Anxiety Hematological/Lymphatic: Denies: Blood Clots, Easy bleeding, Easy bruising, Swollen glands Past Medical History - SOCIAL HISTORY Smoking Status: Heavy tobacco smoker (>10/day) Alcohol Use: None Drug Use: None - RESPIRATORY Hx Respiratory Disorders: Yes Hx Bronchitis: Yes - CARDIOVASCULAR Hx Cardio Disorders: No - NEURO Hx Neuro Disorders: No Hx Headaches: Yes (Sinus) - GI Hx GI Disorders: No - Hx Genitourinary Disorders: No - ENDOCRINE Hx Endocrine Disorders: No - MUSCULOSKELETAL Hx Musculoskeletal Disorders: Yes Hx Arthritis: Yes Comment:: osteomyelitis R shoulder from recurrent ear infections - PSYCH Hx Psych Problems: Yes Hx Depression: Yes - HEMATOLOGY/ONCOLOGY Hx Hematology/Oncology Disorders: No Family Medical History Any Significant Family History?: Yes Family Hx Comment (NOT TO BE USED IN PLACE OF ITEMS BELOW): Parkinson's-father Hx Alcohol Use: Mother Hx Cancer: Father Hx Dementia: Father Hx Diabetes: Father Hx Heart Disease: Father Hx Liver Disease: Mother Physical Exam - General General Appearance: Alert, Oriented x3, Cooperative, No acute distress Limitations: No limitations - Head Head exam: Normal inspection - Eye Eye exam: Normal appearance, PERRL. negative: Conjunctival injection, Scleral icterus - ENT ENT exam: Normal exam, Mucous membranes moist Ear exam: Normal external inspection Nasal Exam: Normal inspection Mouth exam: Normal external inspection Teeth exam: Normal inspection Throat exam: Normal inspection - Neck Neck exam: Normal inspection, Full ROM. negative: Tenderness - Respiratory Respiratory exam: Normal lung sounds bilaterally. negative: Respiratory distress - Cardiovascular Cardiovascular Exam: Regular rate, Normal rhythm, Normal heart sounds - GI/Abdominal GI/Abdominal exam: Soft. negative: Distended, Guarding, Hypoactive bowel sounds , Rebound, Tenderness - Rectal Rectal exam: Deferred - exam: Deferred - Extremities Extremities exam: Normal inspection, Full ROM, Normal capillary refill. negative: Tenderness - Back Back exam: Reports: Normal inspection, Full ROM. Denies: CVA tenderness (R), CVA tenderness (L), Muscle spasm, Paraspinal tenderness, Rash noted, Tenderness , Vertebral tenderness - Neurological Neurological exam: Alert, Oriented X3 - Psychiatric Psychiatric exam: Normal affect, Normal mood. negative: Agitated, Anxious - Skin Skin exam: Dry, Intact, Normal color, Warm Course Vital Signs 06/13/17 16:05 Temperature 98.3 F Pulse Rate 98 H Respiratory 20 Rate Blood Pressure 101/62 Pulse Ox 97 - Reevaluation(s) Reevaluation #1: The CBC was reviewed The WBC is 11 The CMP is negative The UA is positive for infection with blood, LE, and WBC 06/13/17 17:19 06/13/17 17:[address] demonstrates a very small area of decreased attenuation in the right kidney that may represent focal pyelonephritis. I discussed the challenges of antibiotic choices given her allergy to Keflex, Levaquin, and Sulfa all which cause hives. 06/13/17 18:34 The culture from [facility] was obtained The UA grew out E.coli It is Sensitive to cipro. She has had cipro before without reaction. It is resistant to ampicillin. She is well appearing, non toxic and good outpatient candidate. We discussed limited choices due to her allergies and some risks with cipro including musculoskeltal issues. She was warned to stop if she has any joint or tendon pain. 06/13/17 18:37 Medical Decision Making - Lab Data Result diagrams: 06/13/17 16:40 06/13/17 16:40 Disposition Disposition: Discharge Clinical Impression: Pyelonephritis Urinary tract infection Qualifiers: Urinary tract infection type: site unspecified Hematuria presence: without hematuria Qualified Code(s): N39.0 - Urinary tract infection, site not specified Disposition: Home, Self-Care Condition: (1) Good Instructions: Kidney Infection (ED) Additional Instructions: Call your doctor tomorrow for close follow up of your infection Take the culture results with you for review Prescriptions: Ciprofloxacin HCl [Cipro] 500 mg PO Q12HR #20 tablet Forms: Patient Portal Access Time of Disposition: 18:41 Quality - Quality Measures Quality Measures: N/A - Blood Pressure Screening Does Patient Have Any of the Following: No Blood Pressure Classification: Normal BP Reading Systolic Measurement: 101 Diastolic Measurement: 62 Screening for High Blood Pressure: < Normal BP, F/U Not Required > [G8783]
[2017-06-13 16:22] LABS: URINE APPEARANCE CLEAR; URINE BILIRUBIN NEGATIVE (NEGATIVE); URINE BLOOD SMALL (NEGATIVE); URINE COLOR YELLOW; URINE GLUCOSE (UA) NEGATIVE (NEGATIVE); URINE KETONE NEGATIVE (NEGATIVE); URINE LEUKOCYTE ESTERASE SMALL (NEGATIVE); URINE NITRITE NEGATIVE (NEGATIVE); URINE PROTEIN NEGATIVE (NEGATIVE); URINE UROBILINOGEN 0.2 E.U./dL (0.20 - 1.00)
[2017-06-13 16:31] LABS: URINE EPITHELIAL CELLS RARE (FEW); URINE WBC 21 - 35 (0-2/hpf)
[2017-06-13 16:32] LABS: URINE BACTERIA FEW
[2017-06-13 16:47] LABS: BASO % 0.1 % (0-6); EOS % 0.5 % (0-6); GRAN % 70.8 % (47-80); HEMATOCRIT 40.9 % (35.0-47.0); LYMPH % 14.2 % (16-45); MEAN CELL VOLUME 85.6 fl (81-97); MEAN CORPUSCULAR HEMOGLOBIN 29.3 pg (27-33); MEAN CORPUSCULAR HGB CONC 34.2 g/dl (32-36); MEAN PLATELET VOLUME 8.8 fl (7.4-10.4); MONO % 14.4 % (0-9); PLATELET COUNT 271 K/uL (130-400); RED BLOOD COUNT 4.78 M/uL (3.80-5.40); RED CELL DISTRIBUTION WIDTH 13.6 % (11.5-14.5); WHITE BLOOD COUNT W/O DIFF 11.7 K/uL (4.2-12.2)
[2017-06-13 17:01] LABS: BLOOD UREA NITROGEN 11 mg/dL (8-23); CREATININE 0.5 mg/dL (0.5-0.9); EST GLOMERULAR FILTRATION RATE > 60 mL/min
[2017-06-13 17:02] LABS: TOTAL PROTEIN 6.9 g/dL (6.6-8.7)
[2017-06-13 17:04] LABS: GLUCOSE,RANDOM 107 mg/dL (74-109)
[2017-06-13 17:07] LABS: ALB/GLOB RATIO 1.4 (1.1-1.8); ALKALINE PHOSPHATASE 91 U/L (35-104); ALT/SGPT 18 U/L (<33); AST/SGOT 12 U/L (10.0-35.0)
[2017-06-13] MEDS ORDERED: AZTREONAM IVPB ONE (17:49)
[2017-06-13] MEDS ORDERED: SODIUM CHLORIDE 0.9% IVPB ONE (17:49)
[2017-06-13] MEDS ORDERED: CIPROFLOXACIN HCL 500 MG TABLET PO ONE (18:37)
--- NOTE | 2017-06-15 08:09 | CT SCAN REPORT ---
DATE: 06/13/2017 at 5:08 p.m. EXAM: CT OF THE ABDOMEN AND PELVIS WITH CONTRAST. HISTORY: Right flank pain, painful urination, possible pyelonephritis. Hysterectomy. TECHNIQUE: Axial CT scan of the abdomen and pelvis was performed following the intravenous administration of 100 mL of Omnipaque 300 as the intravenous contrast. No oral contrast was utilized at the referring physician's request. COMPARISON: No prior abdomen or pelvic CT with which to compare. FINDINGS: No calcified gallstones are seen within the gallbladder. There is a single small, low attenuation laterally in the right lobe of the liver. This appears to have been present on the prior chest CTA as well and has not increased in size appreciably. It is too small to accurately measure by CT density as it measures only about 6.0 mm in size, but it is probably a small hepatic cyst or hemangioma. No other liver mass evident. No definite splenic, adrenal, or pancreatic mass identified. On the initial postcontrast phase through the kidneys, there is a patchy area of somewhat decreased perfusion in the lateral aspect of the mid portion of the right lung. This is less apparent on the routine delay images and is suspicious for a focus of inflammatory change such as acute pyelonephritis. No hydronephrosis on either side. Study not protocol specifically for urinary tract calculus disease with no definite ureteral calculus seen on either side and no bladder calculus evident. Uterus not identified consistent with the surgical history. There is minor diverticulosis on the left side of the colon but no definite diverticulitis evident. Appendix is visualized and appears of normal caliber with no appendicitis evident. Slight hyperdensity in the appendix is nonspecific although may just be some concentrated enteric content. No free intraperitoneal air or free intraperitoneal fluid identified. IMPRESSION: 1. A SINGLE FOCUS OF SOMEWHAT DECREASED PARENCHYMAL ENHANCEMENT LATERALLY IN THE MID PORTION OF THE RIGHT KIDNEY ON THE INITIAL POSTCONTRAST PHASE, LESS APPARENT ON THE DELAYED IMAGES, AND SUSPICIOUS FOR A FOCUS OF PYELONEPHRITIS. 2. PROBABLE TINY CYST OR HEMANGIOMA LATERALLY IN THE RIGHT LOBE OF THE LIVER APPEARING UNCHANGED IN SIZE FROM 05/10/2015. 3. POSTOPERATIVE HYSTERECTOMY. 4. NO APPENDICITIS EVIDENT. NO FREE AIR OR FREE FLUID SEEN. 5. MILD DIVERTICULOSIS LEFT SIDE OF THE COLON, BUT NO DIVERTICULITIS EVIDENT. JOB NUMBER: [id number] AND [id number] [facility]
== END 2017-06-13 19:04 | disposition home or self-care (01) ==
LOC: ER 16:00
DX: N10 Acute pyelonephritis (principal); N39.0 Urinary tract infection, site not specified; F17.210 Nicotine dependence, cigarettes, uncomplicated
CPT/HCPCS: 99284 ×2; 85025; 80053; 81001; 74177; Q9967

== ENCOUNTER 2018-02-13 16:12 | Emergency (ER) | payer BC ==
[2018-02-13] MEDS ORDERED: Diph,Pert(Acell),Tet Vac 0.5 ML SYR IM ONE (16:30)
--- NOTE | 2018-02-13 16:40 | Emergency Department Record ---
History of Present Illness - General Chief Complaint: Laceration(s) Stated Complaint: LAC LT HAND Time Seen by Provider: 02/13/18 16:30 Source: Patient, RN notes reviewed Mode of Arrival: Ambulatory - History of Present Illness Initial Commments: laceration of the left palm in the area of thenar immence flexor side. 2 point sensation good and FROM and vascular intact, good capillary refill 3 cm laceration. This happened at home with a kitchen knife cutting a potato Onset/Timin -: Minutes(s) Place: Home Context: Accidental, Sharp object use - Jaqueline Coma Scale Eye Response: (4) Open spontaneously Motor Response: (6) Obeys commands Verbal Response: (5) Oriented [place] Total: 15 - Related Data Hx Tetanus Toxoid Vaccination: Yes Year of Tetanus Vaccination: 2012 Patient Tetanus UTD (within 5 yrs): No Home Medications Medication Instructions Recorded Confirmed Last Taken Budesonide/Formoterol Fumarate 10.2 gm IH BID 02/13/18 02/13/18 02/13/18 [Symbicort 80-4.5 Mcg Inhaler] Tiotropium Walker [Spiriva 4 gm IH DAILY 02/13/18 02/13/18 02/13/18 Respimat] Previous Rx's Medication Instructions Recorded Ipratropium/Albuterol [Duoneb] 3 ml INH QID #10 ampul.neb 04/18/16 Allergies Allergy/AdvReac Type Severity Reaction Status Date / Time aspirin Allergy HIVES Verified 02/13/18 16:25 azithromycin Allergy ANAPHYLAXIS Verified 02/13/18 16:25 cephalexin monohydrate Allergy PT UNSURE Verified 02/13/18 16:25 [From Keflex] OF REACTION codeine Allergy VOMITING Verified 02/13/18 16:25 doxycycline Allergy ANAPHYLAXIS Verified 02/13/18 16:25 ibuprofen Allergy HIVES Verified 02/13/18 16:25 Sulfa (Sulfonamide Allergy PT UNSURE Verified 02/13/18 16:25 Antibiotics) OF REACTION levofloxacin AdvReac HIVES Verified 02/13/18 16:25 Can Take Amoxicillin and AdvReac Antibiotics Uncoded 02/13/18 16:25 Cleocin she can take Travel Screening - Travel/Exposure Within Last 30 Days Have you traveled within the last 30 days?: No - Travel/Exposure Within Last Year Have you traveled outside the [place] in the last year?: No - Additonal Travel Details Have you been exposed to anyone with a communicable illness?: No - Travel Symptoms Symptom Screening: None Review of Systems Reviewed: No additional complaints except as noted below Constitutional: Reports: As per HPI. Denies: Chills, Fever, Malaise, Night sweats, Weakness, Weight change Eyes: Reports: As per HPI. Denies: Eye discharge, Eye pain, Photophobia, Vision change ENT: Reports: As per HPI. Denies: Congestion, Dental pain, Ear pain, Epistaxis , Hearing loss, Throat pain Respiratory: Reports: As per HPI. Denies: Cough, Dyspnea, Hemoptysis, Stridor, Wheezes Cardiovascular: Reports: As per HPI. Denies: Arrhythmia, Chest pain, Dyspnea on exertion, Edema, Murmurs, Orthopnea, Palpitations, Paroxysmal nocturnal dyspnea, Rheumatic Fever, Syncope Endocrine: Reports: As per HPI. Denies: Fatigue, Heat or cold intolerance, Polydipsia, Polyuria Gastrointestinal: Reports: As per HPI. Denies: Abdominal pain, Constipation, Diarrhea, Hematemesis, Hematochezia, Melena, Nausea, Vomiting Genitourinary: Reports: As per HPI. Denies: Abnormal menses, Discharge, Dyspareunia, Dysuria, Frequency, Hematuria, Incontinence, Retention, Urgency Musculoskeletal: Reports: As per HPI. Denies: Arthralgia, Back pain, Gout, Joint swelling, Myalgia, Neck pain Skin: Reports: As per HPI. Denies: Bruising, Change in color, Change in hair/ nails, Lesions, Pruritus, Rash Neurological: Reports: As per HPI. Denies: Abnormal gait, Confusion, Headache, Numbness, Paresthesias, Seizure, Tingling, Tremors, Vertigo, Weakness Psychiatric: Reports: As per HPI. Denies: Anxiety, Auditory hallucinations, Depression, Homicidal thoughts, Suicidal thoughts, Visual hallucinations Hematological/Lymphatic: Reports: As per HPI. Denies: Anemia, Blood Clots, Easy bleeding, Easy bruising, Swollen glands Past Medical History - SOCIAL HISTORY Smoking Status: Heavy tobacco smoker (>10/day) Alcohol Use: Rare Drug Use: None - RESPIRATORY Hx Respiratory Disorders: Yes Hx Bronchitis: Yes - CARDIOVASCULAR Hx Cardio Disorders: No - NEURO Hx Neuro Disorders: No Hx Headaches: Yes (Sinus) - GI Hx GI Disorders: No - Hx Genitourinary Disorders: No - ENDOCRINE Hx Endocrine Disorders: No - MUSCULOSKELETAL Hx Musculoskeletal Disorders: Yes Hx Arthritis: Yes Comment:: osteomyelitis R shoulder from recurrent ear infections - PSYCH Hx Psych Problems: Yes Hx Depression: Yes - HEMATOLOGY/ONCOLOGY Hx Hematology/Oncology Disorders: No Family Medical History Any Significant Family History?: No Family Hx Comment (NOT TO BE USED IN PLACE OF ITEMS BELOW): Parkinson's-father Hx Alcohol Use: Mother Hx Cancer: Father Hx Dementia: Father Hx Diabetes: Father Hx Heart Disease: Father Hx Liver Disease: Mother Physical Exam - General General Appearance: Alert, Oriented x3, Cooperative, No acute distress - Head Head exam: Normal inspection - Eye Eye exam: Normal appearance, PERRL Pupils: Normal accommodation - ENT ENT exam: Normal exam, Mucous membranes moist, Normal external ear exam, Normal orophraynx, TM's normal bilaterally Ear exam: Normal external inspection. negative: External canal tenderness Nasal Exam: Normal inspection. negative: Discharge, Sinus tenderness Mouth exam: Normal external inspection, Tongue normal Teeth exam: Normal inspection. negative: Dental caries Throat exam: Normal inspection. negative: Tonsillar erythema, Tonsillar exudate - Neck Neck exam: Normal inspection, Full ROM. negative: Tenderness - Respiratory Respiratory exam: Normal lung sounds bilaterally. negative: Respiratory distress - Cardiovascular Cardiovascular Exam: Regular rate, Normal rhythm, Normal heart sounds - GI/Abdominal GI/Abdominal exam: Soft, Normal bowel sounds. negative: Tenderness - Rectal Rectal exam: Deferred - exam: Deferred - Extremities Extremities exam: Normal inspection, Full ROM, Normal capillary refill. negative: Tenderness - Back Back exam: Reports: Normal inspection, Full ROM. Denies: Muscle spasm, Rash noted, Tenderness - Neurological Neurological exam: Alert, Normal gait, Oriented X3, Reflexes normal - Psychiatric Psychiatric exam: Normal affect, Normal mood - Skin Skin exam: Dry, Intact, Normal color, Warm Course Vital Signs 02/13/18 16:17 Temperature 98.5 F Pulse Rate 97 H Respiratory 16 Rate Blood Pressure 121/71 Pulse Ox 95 - Reevaluation(s) Reevaluation #1: laceration repair with 4.0 ethilon 1% lidocaine 4 sutures cleaned with Shurclens 02/13/18 16:38 Disposition Clinical Impression: Laceration of hand Qualifiers: Encounter type: initial encounter Foreign body presence: without foreign body Laterality: right Qualified Code(s): S61.411A - Laceration without foreign body of right hand, initial encounter Disposition: Home, Self-Care Condition: (1) Good Instructions: Laceration (ED) Additional Instructions: follow up with family Dr in 9 days or return to the ED Forms: Patient Portal Access Time of Disposition: 16:51 Quality - Quality Measures Quality Measures: N/A - Blood Pressure Screening Does Patient Have Any of the Following: No Blood Pressure Classification: Pre-Hypertensive BP Reading Systolic Measurement: 121 Diastolic Measurement: 71 Screening for High Blood Pressure: < Pre-Hypertensive BP, F/U Documented > [ G8950] Pre-Hypertensive Follow-up Interventions: Referral to alternative/primary care provider.
== END 2018-02-13 17:01 | disposition home or self-care (01) ==
LOC: ER 16:12
DX: S61.412A Laceration without foreign body of left hand, initial encounter (principal); W26.0XXA Contact with knife, initial encounter; Y93.G3 Activity, cooking and baking; Y92.000 Kitchen of unspecified non-institutional (private) residence as the place of occurrence of the external cause; F17.210 Nicotine dependence, cigarettes, uncomplicated
CPT/HCPCS: 12002; 90715; 96372; 99283

== ENCOUNTER 2018-09-05 10:56 | Day surgery (SDC) | payer MEDICARE, BC ==
[2018-09-05] MEDS ORDERED: PROPOFOL 10 MG/ML VIAL IV ONE (10:57)
[2018-09-05] MEDS ORDERED: LIDOCAINE 2% MDV (20MG/ML) 20ML VIAL IV ONE (10:57)
--- NOTE | 2018-09-06 12:10 | Operative Note ---
OPERATION: COLONOSCOPY. PREOPERATIVE DIAGNOSIS: Colon cancer screening, initial exam. POSTOPERATIVE DIAGNOSIS: Sigmoid diverticulosis and rectal polyp. PROCEDURE: After informed consent was obtained from the patient, she was placed in the left lateral decubitus position in the endoscopy suite, sedated and monitored by the department of anesthesia. Digital rectal exam was unremarkable. A well-lubricated [id number] colonoscope was inserted into the rectum and advanced to the cecum. The cecum and cecal bulb were identified and were unremarkable. Preparation quality was excellent. The ascending colon was then examined and was unrevealing. The endoscope was than advanced back into the cecum which again was inspected and was unremarkable. The ascending colon, transverse colon, and descending colon were free of inflammatory changes, mass lesions, or polyps. The sigmoid colon demonstrated [id number] diverticular changes. No other abnormalities were identified. The rectum was unremarkable in forward views and in J-turn views. The endoscope was straightened and retracted in the distal rectum where a diminutive polyp was identified and removed with a cold forceps. Minimal bleeding was noted. The rectal ampulla deflated, and the endoscope was removed. RECOMMENDATIONS: I would suggest the patient resume her medications and diet. She may require repeat exam in 5-10 years pending tissue histology. As always, thank you for allowing me to participate in the healthcare of your patients. CC: Adam Cardona MD [facility]
== END 2018-09-05 12:20 | disposition home or self-care (01) ==
LOC: HOP 10:56
PROVIDERS: ATTEND Internal Medicine Gastroenterology
DX: Z12.11 Encounter for screening for malignant neoplasm of colon (principal); D12.8 Benign neoplasm of rectum; K57.30 Diverticulosis of large intestine without perforation or abscess without bleeding; J45.909 Unspecified asthma, uncomplicated; K21.9 Gastro-esophageal reflux disease without esophagitis